=== PATIENT | male | born 1990 | race African-American/Black ===

== ENCOUNTER 2018-06-07 14:49 | Emergency (ER) | payer OTHER ==
[2018-06-07 14:55] VITALS: Ht 175.3 cm
[2018-06-07 17:03] LABS: BASOPHIL % 0.1 % (0-2); PLATELET COUNT 240 x10^3mcL (130-400); RED CELL DISTRIBUTION WIDTH 13.7 % (11.5-14.5)
[2018-06-07 17:12] LABS: CALCIUM 9.3 mg/dL (8.5-10.1); CARBON DIOXIDE 23.9 mmol/L (21-32); CHLORIDE SERUM 108 mmol/L (98-107); CREATININE SERUM 1.3 mg/dL (0.7-1.3); GFR1 > 60 mL/min; GLUCOSE SERUM 81 mg/dL (74-106); POTASSIUM SERUM 3.3 mmol/L (3.5-5.1); SODIUM SERUM 144 mmol/L (136-145)
[2018-06-07 17:17] LABS: ALBUMIN 4.5 g/dL (3.4-5.0); ALKALINE PHOSPHATASE 81 U/L (46-116); ALT/SGPT 19 U/L (16-63); AST/SGOT 20 U/L (15-37); BILIRUBIN TOTAL 0.45 mg/dL (0.20-1.00); LIPASE 161 IU/L (73-393)
[2018-06-07 17:19] LABS: TOTAL PROTEIN, SERUM 8.5 g/dL (6.4-8.2)
[2018-06-07 18:18] VITALS: BP 118/80
== END 2018-06-07 18:18 | disposition home or self-care (01) ==
LOC: ED 14:49
PROVIDERS: Emergency Medicine
DX: K29.00 Acute gastritis without bleeding (principal)
CPT/HCPCS: J7030; Q0162